=== PATIENT | female | born 1985 | race Caucasian/White ===

== ENCOUNTER 2021-04-04 00:56 | Inpatient (IN) | payer OTHER ==
[~2021-04-04] VITALS: Ht 165.1 cm; Wt 58.5 kg
[2021-04-04 01:16] LABS: HEMOGLOBIN 10.5 gm/dl (12.3-15.3); RED BLOOD COUNT 3.66 M/UL (4.00-5.10); WHITE BLOOD COUNT 11.1 K/UL (4.5-11.0)
[2021-04-04 01:37] LABS: BUN/CREATININE RATIO 29 (0-10)
[2021-04-04 02:07] LABS: BORDETELLA PARAPERTUSSIS Not Detected (Not Detectd); BORDETELLA PERTUSSIS Not Detected (Not Detectd); CHLAMYDIA PNEUMONIAE Not Detected (Not Detectd); CORONAVIRUS HKU1 Not Detected (Not Detectd); CORONAVIRUS NL63 Not Detected (Not Detectd); CORONAVIRUS OC43 Not Detected (Not Detectd); CORONOAVIRUS 229E Not Detected (Not Detectd); HUMAN METAPNEUMOVIRUS Not Detected (Not Detectd); HUMAN RHINOVIRUS/ENTEROVIRUS Not Detected (Not Detectd); INFLUENZA A Not Detected (Not Detectd); INFLUENZA B Not Detected (Not Detectd); MYCOPLASMA PNEUMONIAE Not Detected (Not Detectd); PARAINFLUENZA VIRUS 1 Not Detected (Not Detectd); PARAINFLUENZA VIRUS 2 Not Detected (Not Detectd); PARAINFLUENZA VIRUS 3 Not Detected (Not Detectd); PARAINFLUENZA VIRUS 4 Not Detected (Not Detectd); RESPIRATORY SYNCYTIAL VIRUS Not Detected (Not Detectd)
[2021-04-04 03:16] LABS: SARS-CoV-2 NOT DETECTED (Not Detectd)
[2021-04-04 06:34] LABS: HEMOGLOBIN 11.8 gm/dl (12.3-15.3)
[2021-04-04 06:36] LABS: RED BLOOD COUNT 4.2 M/UL (4.00-5.10); WHITE BLOOD COUNT 28.5 K/UL (4.5-11.0)
[2021-04-04 07:03] LABS: BUN/CREATININE RATIO 31 (0-10)
[2021-04-08] MEDS ORDERED: HYDROCODON-ACE1 EAC4 PO (09:02)
== END 2021-04-08 10:34 | disposition home or self-care (01) | DRG 330 ==
LOC: ER1 00:56 → CDU 02:55 → CCU 04:43 → M/S 17:59 → CCU 17:59 → M/S 17:59 → CDU 04-07 12:08 → M/S 04-07 12:08
PROVIDERS: Family Medicine; ADMIT Surgery
PROC: 0DQM0ZZ Repair Descending Colon, Open Approach (ICD-10-PCS; 2021-04-04)
PROC: 0DQ80ZZ Repair Small Intestine, Open Approach (ICD-10-PCS; principal; 2021-04-04 02:46)
DX: S36.499A Other injury of unspecified part of small intestine, initial encounter (principal); S36.592A Other injury of descending [left] colon, initial encounter; S36.892A Contusion of other intra-abdominal organs, initial encounter; Z20.822 Contact with and (suspected) exposure to COVID-19; W33.01XA Accidental discharge of shotgun, initial encounter; Y93.89 Activity, other specified; Y92.89 Other specified places as the place of occurrence of the external cause; Y99.8 Other external cause status
CPT/HCPCS: 36415; 36430; 71045; 71260; 72170; 80053; 80307; 81001; 83605; 84703; 85025; 85027; 85610; 85730; 86850; 86900; 86901; 86920; 87633; 99285; G0480; J0690; J1170; J2001; J2250; J2270; J2405; J2704; J2710; J3010; J7030; J7120; P9016; Q9967

== ENCOUNTER 2021-06-18 19:34 | Emergency (ER) | payer OTHER ==
[~2021-06-18 19:34] MED LIST: HYDROCODON-ACE1 EAC4 PO
[2021-06-18 20:45] LABS: HEMOGLOBIN 12.8 gm/dl (12.3-15.3); RED BLOOD COUNT 4.67 M/UL (4.00-5.10)
[2021-06-18 21:14] LABS: BUN/CREATININE RATIO 19 (0-10)
[2021-06-19] MEDS ORDERED: AUGMENTIN 875-1 EACH PO (00:29)
== END 2021-06-19 00:44 | disposition home or self-care (01) ==
LOC: ER1 19:34
PROVIDERS: Emergency Medicine
DX: S79.912A Unspecified injury of left hip, initial encounter (principal); N39.0 Urinary tract infection, site not specified; X58.XXXA Exposure to other specified factors, initial encounter
CPT/HCPCS: 80053; 81001; 83605; 83690; 84703; 85025; 86140; 99285; Q9967

== ENCOUNTER 2021-10-12 12:32 | Emergency (ER) | payer MEDICAID ==
[~2021-10-12 12:32] MED LIST changes: +AUGMENTIN 875-1 EACH PO
[2021-10-12 14:12] LABS: HEMOGLOBIN 14.1 gm/dl (12.3-15.3); RED BLOOD COUNT 4.85 M/UL (4.00-5.10); WHITE BLOOD COUNT 8.2 K/UL (4.5-11.0)
[2021-10-12 14:41] LABS: BUN/CREATININE RATIO 21 (0-10)
[2021-10-12] MEDS ORDERED: ZOFRAN4 MG PO (16:22)
[2021-10-12] MEDS ORDERED: OMNICEF 300 MG300 MG PO (16:22)
[2021-10-12] MEDS ORDERED: NAPROXEN500 MG PO (16:22)
[2021-10-12] MEDS ORDERED: BENTYL 20MG TAB20 MG PO (16:22)
== END 2021-10-12 16:26 | disposition home or self-care (01) ==
LOC: ER1 12:32
PROVIDERS: Physician Assistant
DX: N30.90 Cystitis, unspecified without hematuria (principal); M25.552 Pain in left hip; Z87.828 Personal history of other (healed) physical injury and trauma
CPT/HCPCS: 80053; 81001; 83690; 84703; 85025; 87077; 87086; 87186; 99284; Q9967

== ENCOUNTER 2022-02-21 04:59 | Emergency (ER) | payer SELFPAY ==
[~2022-02-21 04:59] MED LIST changes: +BENTYL 20MG TAB20 MG PO; +NAPROXEN500 MG PO; +OMNICEF 300 MG300 MG PO; +ZOFRAN4 MG PO
[2022-02-21] MEDS ORDERED: IBUPROFEN600 MG PO (09:32)
[2022-02-21] MEDS ORDERED: NORFLEX 100 MG100 MG PO (09:32)
== END 2022-02-21 09:40 | disposition home or self-care (01) ==
LOC: ER1 04:59
DX: S16.1XXA Strain of muscle, fascia and tendon at neck level, initial encounter (principal); S00.83XA Contusion of other part of head, initial encounter; S39.012A Strain of muscle, fascia and tendon of lower back, initial encounter; Y09 Assault by unspecified means; Y04.8XXA Assault by other bodily force, initial encounter; Y92.009 Unspecified place in unspecified non-institutional (private) residence as the place of occurrence of the external cause
CPT/HCPCS: 70450; 71046; 72100; 72125; 99284